=== PATIENT | male | born 1940 | race Hispanic/Latino ===

== ENCOUNTER 2017-03-10 23:57 | Inpatient (IN) | payer MEDICARE, BC ==
--- NOTE | 2017-03-11 00:33 | ED PDOC ---
Arrival/HPI - General Chief Complaint: Shortness Of Breath Time Seen by Provider: 03/11/17 00:24 Historian: Patient - History of Present Illness Narrative History of Present Illness (Text): 03/11/17 00:33 Ludwig Sim is a 76 year old male, with a history of CAD with stents, presents to the emergency department via ambulance status post cardiac arrest. According to family, patient was short of breath the entire day because his home O2 was not working. Family initially called the ambulance because the patient has severe difficulty breathing, but patient became asystolic/PEA on the ambulance en route to emergency department. ACLS protocol initiated. Patient was pulseless upon arrival. ACLS protocol continued. 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 Family/Social History - Physician Review Nursing Documentation Reviewed: Yes Family/Social History: No Known Family HX Smoking Status: Former Smoker Hx Alcohol Use: No Hx Substance Use: No Allergies/Home Meds Allergies/Adverse Reactions: Allergies No Known Allergies Allergy (Verified 03/11/17 00:11) Home Medications: Home Meds Medication Instructions Recorded Confirmed Aspirin [Adult Low Dose Aspirin EC] 81 mg PO DAILY 03/11/17 03/11/17 Atorvastatin [Lipitor] 40 mg PO DAILY 03/11/17 03/11/17 Clopidogrel [Plavix] 75 mg PO DAILY 03/11/17 03/11/17 Furosemide [Lasix] 40 mg PO DAILY 03/11/17 03/11/17 Hydralorine 50 mg PO BID 03/11/17 03/11/17 Metoprolol Tartrate [Lopressor] 50 mg PO BID 03/11/17 03/11/17 Potassium Chloride [Klor-Con] 20 meq PO DAILY 03/11/17 03/11/17 Valsartan 320 mg PO DAILY 03/11/17 03/11/17 amLODIPine [Norvasc] 10 mg PO DAILY 03/11/17 03/11/17 Review of Systems - Review of Systems Systems not reviewed;Unavailable: Other (cardiac arrest) Cardiovascular: BECK Physical Exam - Physical Exam Physical Exam Limitations: Clinical Condition Vital Signs Temp Pulse Resp BP Pulse Ox 03/11/17 02:24 61 101/41 L 03/11/17 02:00 64 33 H 108/58 L 93 L 03/11/17 01:04 148/71 03/11/17 00:40 67 24 148/71 96 03/11/17 00:25 66 17 126/71 94 L 03/10/17 23:59 99.5 F 109 H 22 208/126 H Temperature: Afebrile Blood Pressure: Normal Pulse: Regular Respiratory Rate: Normal Appearance: Positive for: Non-Toxic Mental Status: Positive for: other (Unresponsive s/p cardiac arrest ) - Systems Exam Head: Present: Atraumatic, Normocephalic Pupils: Present: Pinpoint Conjunctiva: No: Injected Mouth: Present: Moist Mucous Membranes Pharnyx: Present: Normal Nose (External): Present: Atraumatic Neck: Present: Trachea Midline. No: MIDLINE TENDERNESS Respiratory/Chest: Present: Rales Cardiovascular: Present: Other (asystole). No: Murmurs Abdomen: No: Tenderness, Distention, Peritoneal Signs Upper Extremity: No: Edema Lower Extremity: No: Edema Neurological: Present: Other (Intubated; unresponsive to verbal stimuli ) Skin: Present: Warm, Dry, Normal Color. No: Rashes Medical Decision Making ED Course and Treatment: 03/11/17 00:40 Impression: A 76 year old male who presents to the emergency department via ambulance s/p cardiac arrest. Plan: -- EKG -- Labs, cardiac enzymes -- Chest X-ray -- Urinalysis -- Reassess and disposition Progress Notes: 03/11/17 00:42 Pulse regained after chemical resuscitation via epi and continued CPR. 03/11/17 00:51 Patient was intubated in the emergency department. PROCEDURE: INTUBATION Performed by the emergency provider Time: 12:02 Indication: cardiac arrest Pre-oxygenation: [id number] ETT Size: 8 Gauge Confirmation: Cords directly visualized as tube passed, good bilateral breath sounds, positive CO2 detector color change, tube fogging, adequate chest rise, improving pulse oximetry reading, improved skin color, and absence of gastric sounds. ETT Secured: The cuff was inflated and the tube was secured appropriately at a distance of 24 cm at the lip. CXR Confirmation: Yes CT Head results reviewed: FINDINGS: There is mild ventriculomegaly and cortical sulci widening. There are areas of diminished density in the periventricular and subcortical white matter bilaterally, nonspecific. There is no evidence for hemorrhage, mass effect, or extra-axial fluid collections. No skull abnormalities are seen. Moderate mucoperiosteal thickening of the maxillary sinuses bilaterally. IMPRESSION: No evidence of acute intracranial hemorrhage. No midline shift or hydrocephalus. Age-appropriate atrophy. Areas of diminished density in the periventricular and subcortical white matter bilaterally, nonspecific however likely represent chronic small vessel ischemic change Case was discussed with who is aware and agrees with the plan to admit patient ICU. Accepts patient under her service. Patient was evaluated by . Accepts patient to the ICU - Critical Care Critical Care Minutes: 60 minutes (management of cardiac arrest ) - Lab Interpretations Lab Results: 03/11/17 00:10 03/11/17 00:10 Lab Results 03/11/17 01:00: pCO2 60 H, pO2 140.0 H, HCO3 21.9, ABG pH 7.17 L*, ABG Total CO2 23.7, ABG O2 Saturation 99.7 H, ABG O2 Content 11.7 L, ABG Base Excess -6.6 L, ABG Hemoglobin 8.4 L, ABG Carboxyhemoglobin 2.8 H, POC ABG HHb (Measured) 0.3 , ABG Methemoglobin 0.8, ABG O2 Capacity 11.7 L, Hgb O2 Saturation 96.2, FiO2 100.0 03/11/17 00:50: Urine Color Yellow, Urine Appearance Clear, Urine pH 7.0, Ur Specific [place] 1.020, Urine Protein 100 H, Urine Glucose (UA) Negative, Urine Ketones Negative, Urine Blood Negative, Urine Nitrate Negative, Urine Bilirubin Negative, Urine Urobilinogen 1.0 H, Ur Leukocyte Esterase Negative, Urine RBC 0 - 2, Urine WBC 0 - 2, Ur Epithelial Cells 0 - 2, Urine Bacteria Few 03/11/17 00:30: pO2 45, VBG pH 6.98 L*, VBG pCO2 140.0 H*, VBG HCO3 33.0 H, VBG Total CO2 37.3 H, VBG O2 Sat (Calc) 61.2, VBG Base Excess -1.8 L, VBG Potassium 4.4, Glucose 327 H, Lactate 6.6 H*, FiO2 21.0, Sodium 139.0, Chloride 101.0, Venous Blood Potassium 4.4 03/11/17 00:10: Sodium 139, Potassium 4.3, Chloride 96 L, Carbon Dioxide 32, Anion Gap 15, BUN 20, Creatinine 1.1, Est GFR ( Amer) > 60, Est GFR (Non- Af Amer) > 60, Random Glucose 293 H, Calcium 8.5, Magnesium 2.5 H, Total Bilirubin 0.8, AST 43, ALT 37, Alkaline Phosphatase 100, Lactate Dehydrogenase 651, Total Creatine Kinase 105, Troponin I 0.03, NT-Pro-B Natriuret Pep 2180 H, Total Protein 7.3, Albumin 3.7, Globulin 3.6, Albumin/Globulin Ratio 1.0 L 03/11/17 00:10: PT 12.6 H, INR 1.17 H, APTT 33.7 H 03/11/17 00:10: WBC 13.6 H, RBC 4.19, Hgb 11.4 L, Hct 38.2 L, MCV 91.2, MCH 27.2 , MCHC 29.8 L, RDW 16.2 H, Plt Count 275, MPV 10.0, Neutrophils % (Manual) 45 L , Band Neutrophils % 4 H, Lymphocytes % (Manual) 40 H, Monocytes % (Manual) 5, Eosinophils % (Manual) 2, Metamyelocytes % 2, Myelocytes % 2, Platelet Evaluation Normal, Anisocytosis (manual) 1+ I have reviewed the lab results: Yes - RAD Interpretation Radiology Orders: 03/11/17 00:25 CHEST PORTABLE [RAD] Stat 03/11/17 00:46 HEAD W/O CONTRAST [CT] Stat - EKG Interpretation Interpreted by ED Physician: Yes Type: 12 lead EKG - Medication Orders Current Medication Orders: Dobutamine HCl/Dextrose (Dobutamine/Dextrose 5% 500mg/250ml) 500 mg in 250 mls @ 7.484 mls/hr IV .Q24H PRN; Protocol; 2.5 MCG/KG/MIN PRN Reason: TITRATE PER PROTOCOL Last Admin: 03/11/17 02:24 Dose: 7.484 mls/hr Morphine Sulfate (Morphine) 3 mg IVP Q2H PRN PRN Reason: Agitation Scopolamine (Transderm-Scop) 1 patch TD Q3D NAT Last Admin: 03/11/17 05:05 Dose: 1 patch Discontinued Medications Furosemide (Lasix) 20 mg IVP ONCE ONE Stop: 03/11/17 00:55 Last Admin: 03/11/17 01:04 Dose: 20 mg Vancomycin HCl (Vancomycin 1gm) 1 gm in 250 mls @ 167 mls/hr IVPB STAT STA PRN Reason: Protocol Stop: 03/11/17 02:33 Last Admin: 03/11/17 03:11 Dose: Piperacillin Sod/Tazobactam Sod (Zosyn 3.375 In Ns 100ml) 100 mls @ 200 mls/hr IVPB STAT STA PRN Reason: Protocol Stop: 03/11/17 01:34 Last Admin: 03/11/17 02:06 Dose: 200 mls/hr Levetiracetam 1,000 mg/ Sodium (Chloride) 110 mls @ 440 mls/hr IV ONCE ONE Stop: 03/11/17 02:34 Last Admin: 03/11/17 02:46 Dose: 440 mls/hr Morphine Sulfate (Morphine) 2 mg IVP STAT STA Stop: 03/11/17 03:35 Last Admin: 03/11/17 05:08 Dose: 2 mg Sodium Bicarbonate (Sodium Bicarbonate (8.4%) 50 Meq Syringe) 50 meq IVP ONCE ONE Stop: 03/11/17 02:21 Last Admin: 03/11/17 02:30 Dose: 50 meq - Fabibe Statement The provider has reviewed the documentation as recorded by the Reese Albarran Provider Attestation: All medical record entries made by the Reese were at my direction and personally dictated by me. I have reviewed the chart and agree that the record accurately reflects my personal performance of the history, physical exam, medical decision making, and the department course for this patient. I have also personally directed, reviewed, and agree with the discharge instructions and disposition. Disposition/Present on Arrival - Present on Arrival Any Indicators Present on Arrival: No History of DVT/PE: No History of Uncontrolled Diabetes: No Urinary Catheter: No History of Decub. Ulcer: No History Surgical Site Infection Following: None - Disposition Have Diagnosis and Disposition been Completed?: Yes Diagnosis: Cardiac arrest Disposition: HOSPITALIZED Disposition Time: 03:00 Condition: CRITICAL
[2017-03-11 00:55] LABS: HEMATOCRIT 38.2 % (42.0-52.0); MEAN CELL VOLUME 91.2 fL (80.0-105.0); MEAN CORPUSCULAR HEMOGLOBIN 27.2 pg (25.0-35.0); MEAN CORPUSCULAR HGB CONC 29.8 g/dl (31.0-37.0); PLATELET COUNT 275 10^3/uL (120.0-450.0); RED CELL DISTRIBUTION WIDTH 16.2 % (11.5-14.5); WHITE BLOOD COUNT 13.6 10^3/ul (4.5-11.0)
[2017-03-11 00:57] LABS: ADD MANUAL DIFF? YES
[2017-03-11 01:01] LABS: INR 1.17 (0.93-1.08); PARTIAL THROMBOPLASTIN TIME 33.7 Seconds (23.7-30.8)
[2017-03-11 01:03] LABS: ALKALINE PHOSPHATASE 100 U/L (38-133); ALT/SGPT 37 U/L (7-56); AST/SGOT 43 U/L (15-59); BILIRUBIN,TOTAL 0.8 mg/dL (0.2-1.3); BLOOD UREA NITROGEN 20 mg/dL (7-21); CALCIUM 8.5 mg/dL (8.4-10.5); CARBON DIOXIDE 32 mmol/L (21-33); CHLORIDE 96 mmol/L (98-107); GFR AFRICAN-AMERICAN > 60; GLUCOSE,RANDOM 293 mg/dL (70-110); MAGNESIUM 2.5 mg/dL (1.7-2.2); POTASSIUM 4.3 mmol/L (3.6-5.0); SODIUM 139 mmol/L (132-148); TOTAL PROTEIN 7.3 g/dL (5.8-8.3)
[2017-03-11] MEDS ORDERED: Vancomycin 1gm in NS 250ml 1 GM/250 ML BAG IVPB STA (01:04)
[2017-03-11] MEDS ORDERED: Piperacillin/Tazobact 3.375 gm 100 ML IVPB STA (01:05)
[2017-03-11 01:08] LABS: URINE BILIRUBIN NEGATIVE (NEGATIVE); URINE BLOOD NEGATIVE (NEGATIVE); URINE GLUCOSE (UA) NEGATIVE (NEGATIVE); URINE KETONE NEGATIVE (NEGATIVE); URINE LEUKOCYTE ESTERASE NEGATIVE Leu/uL (NEGATIVE); URINE PROTEIN 100 mg/dL (<30 mg/dL)
[2017-03-11 01:09] LABS: VENOUS BLOOD GAS BASE EXCESS -1.8 mmol/L (0.0-2.0)
[2017-03-11 01:13] LABS: VENOUS BLOOD PH 6.98 (7.32-7.43)
[2017-03-11 01:15] LABS: TROPONIN I 0.03 ng/mL
[2017-03-11 01:16] LABS: ARTERIAL BLOOD GAS HCO3 21.9 mmol/L (21-28); ARTERIAL BLOOD GAS O2 CAPACITY 11.7 mL/dl (16-24); ARTERIAL BLOOD GAS O2 CONTENT 11.7 ML/dl (15-23); ARTERIAL BLOOD HGB O2 SAT 96.2 % (95.0-98.0); CARBOXYHEMOGLOBIN 2.8 % (0.5-1.5); HHB 0.3 % (0-5); METHEMOGLOBIN 0.8 % (0.0-3.0)
[2017-03-11 01:18] LABS: ARTERIAL BLOOD GAS PH 7.17 (7.35-7.45)
[2017-03-11 01:22] LABS: URINE APPEARANCE CLEAR (CLEAR); URINE COLOR YELLOW (YELLOW)
[2017-03-11 01:24] LABS: URINE BACTERIA FEW (NEG); URINE EPITHELIAL CELLS 0 - 2 /hpf (0-5); URINE RBC 0 - 2 /hpf (0-2); URINE WBC 0 - 2 /hpf (0-6)
[2017-03-11 02:03] LABS: BAND 4 % (0-2); NEUTROPHIL 45 % (50.0-70.0)
[2017-03-11 02:04] LABS: EOSINOPHIL 2 % (0.0-3.0); METAMYELOCYTE 2 %; MYELOCYTE 2 %
[2017-03-11 02:05] LABS: ANISOCYTOSIS 1+
[2017-03-11 02:06] LABS: PLATELET ESTIMATE NORMAL (NORMAL)
[2017-03-11] MEDS ORDERED: DOBUTamine 500mg/250ml D5W 500 MG/250 ML BAG IV PRN (02:11)
[2017-03-11] MEDS ORDERED: levETIRAcetam 1,000 MG in Sodium Chloride 0.9% 100 ML IV ONE (02:20)
[2017-03-11] MEDS ORDERED: Sodium Bicarbonate (8.4%) 50 Meq Syringe IVP ONE (02:20)
--- NOTE | 2017-03-11 03:17 | CP.PCM.CON ---
History of Present Illness - History of Present Illness History of Present Illness: Reason for ICU consult: Cardiac arrest HPI: 76 y/o male with a PMHx CAD, Htn, CHF (unknown EF) was brought to the ED via EMS due to him having complaints of not breathing well. The patient's son states that he has had a cardiac catheterization last month where he had a stent placed and since then he has not been his usual self. He has had frequent admissions to [facility] for heart failure requiring diuresis. His most recent admission was last week where he was in the ICU for 2-3 days, downgraded to the medical floor and discharged home 2 days ago. The family states that he began complaining of chest pain and discomfort after returning from the hospital however he did not seek treatment or return to the hospital hoping it would pass. Today the patient began having difficulty breathing to the point where EMS was called. En route to the ED, patient underwent a cardiac arrest which continued as he was brought in to the emergency room. He was given at least 4 epinephrine and remained in Asystole for over 20 minutes until ROSC was achieved. The patient is currently intubated, not on any sedation and not able to provide any history or participate in the exam. I discussed the patient's current condition and poor prognosis with the family and they state they want to decide on how to proceed with patient's care in terms of aggressive care vs DNR at this time. PMHx: CAD s/p recent stent placed last month Htn CHF (unknown EF, patient had treatment and care at [facility]) Allergies: NKDA Fam Hx: CAD in multiple family members Soc Hx: 1ppd x 20yrs (quit 30yrs ago); no etoh use; lived at home with his family and was able to perform all ADL's and IADL's himself up until about 1 month ago where he became increasingly debilitated to the point where he was having difficulty walking more than a few steps without becoming short of breath Meds: Metoprolol 25mg po bid Potassium supplementation 20mEq daily Valsartan 320mg po daily Lasix 40mg po daily Norvasc 10mg po daily Hydralazine 50mg po bid Atorvastatin 40mg po hs Aspirin 81mg po daily Protonix 40mg po daily Review of Systems - Review of Systems Systems not reviewed;Unavailable: Acuity of Condition, Intubated Past Patient History - Past Social History Smoking Status: Former Smoker - HEENT Hx HEENT Problems: No - RENAL Hx Chronic Kidney Disease: No - ENDOCRINE/METABOLIC Hx Endocrine Disorders: No - HEMATOLOGICAL/ONCOLOGICAL Hx Blood Disorders: No - INTEGUMENTARY Hx Dermatological Problems: No - MUSCULOSKELETAL/RHEUMATOLOGICAL Hx Musculoskeletal Disorders: No - GASTROINTESTINAL Hx Gastrointestinal Disorders: No - GENITOURINARY/GYNECOLOGICAL Hx Genitourinary Disorders: No - PSYCHIATRIC Hx Psychophysiologic Disorder: No Hx Substance Use: No - 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 Allergies/Adverse Reactions: Allergies Allergy/AdvReac Type Severity Reaction Status Date / Time No Known Allergies Allergy Verified 03/11/17 00:11 - Medications Medications: Current Medications Vancomycin HCl (Vancomycin 1gm) 1 gm in 250 mls @ 167 mls/hr IVPB STAT STA PRN Reason: Protocol Stop: 03/11/17 02:33 Dobutamine HCl/Dextrose (Dobutamine/Dextrose 5% 500mg/250ml) 500 mg in 250 mls @ 7.484 mls/hr IV .Q24H PRN; Protocol; 2.5 MCG/KG/MIN PRN Reason: TITRATE PER PROTOCOL Last Admin: 03/11/17 02:24 Dose: 7.484 mls/hr Levetiracetam 1,000 mg/ Sodium (Chloride) 110 mls @ 440 mls/hr IV ONCE ONE Stop: 03/11/17 02:34 Physical Exam - Constitutional Additional comments: intubated; not on any sedation, unresponsive to verbal/physical/painful stimulus at this time. Appears to be posturing and showing myoclonic jerks every few minutes as well - Head Exam Head Exam: ATRAUMATIC, NORMOCEPHALIC - Eye Exam Pupil Exam: PERRL - ENT Exam ENT Exam: Mucous Membranes Moist - Neck Exam Additional comments: short thick neck - Respiratory Exam Respiratory Exam: Decreased Breath Sounds (decreased bilateral breath sounds), Rales, Rhonchi. absent: Wheezes - Cardiovascular Exam Cardiovascular Exam: REGULAR RHYTHM, +S1, +S2 - GI/Abdominal Exam GI & Abdominal Exam: Soft. absent: Guarding, Rebound, Tenderness - Rectal Exam Rectal Exam: Deferred - Extremities Exam Extremities exam: Negative for: calf tenderness Additional comments: 2+ LE edema bilaterally - Neurological Exam Neurological exam: Altered (unresponsive to multiple verbal/physical/painful stimuli) - Skin Skin Exam: Dry, Intact, Normal Color, Warm Results - Vital Signs Recent Vital Signs: Last Vital Signs Temp 99.5 F 03/10/17 23:59 Pulse 61 03/11/17 02:24 Resp 24 03/11/17 00:40 BP 101/41 L 03/11/17 02:24 Pulse Ox 96 03/11/17 00:40 - Labs Result Diagrams: 03/11/17 00:10 03/11/17 00:10 Labs: Laboratory Results - last 24 hr 03/11/17 03/11/17 03/11/17 00:10 00:10 00:10 WBC 13.6 H RBC 4.19 Hgb 11.4 L Hct 38.2 L MCV 91.2 MCH 27.2 MCHC 29.8 L RDW 16.2 H Plt Count 275 MPV 10.0 Neutrophils % (Manual) 45 L Band Neutrophils % 4 H Lymphocytes % (Manual) 40 H Monocytes % (Manual) 5 Eosinophils % (Manual) 2 Metamyelocytes % 2 Myelocytes % 2 Platelet Evaluation Normal Anisocytosis (manual) 1+ PT 12.6 H INR 1.17 H APTT 33.7 H pCO2 pO2 HCO3 ABG pH ABG Total CO2 ABG O2 Saturation ABG O2 Content ABG Base Excess ABG Hemoglobin ABG Carboxyhemoglobin POC ABG HHb (Measured) ABG Methemoglobin ABG O2 Capacity VBG pH VBG pCO2 VBG HCO3 VBG Total CO2 VBG O2 Sat (Calc) VBG Base Excess VBG Potassium Hgb O2 Saturation Glucose Lactate FiO2 Sodium 139 Potassium 4.3 Chloride 96 L Carbon Dioxide 32 Anion Gap 15 BUN 20 Creatinine 1.1 Est GFR ( Amer) > 60 Est GFR (Non-Af Amer) > 60 Random Glucose 293 H Calcium 8.5 Magnesium 2.5 H Total Bilirubin 0.8 AST 43 ALT 37 Alkaline Phosphatase 100 Lactate Dehydrogenase 651 Total Creatine Kinase 105 Troponin I 0.03 NT-Pro-B Natriuret Pep 2180 H Total Protein 7.3 Albumin 3.7 Globulin 3.6 Albumin/Globulin Ratio 1.0 L Venous Blood Potassium Urine Color Urine Appearance Urine pH Ur Specific [place] Urine Protein Urine Glucose (UA) Urine Ketones Urine Blood Urine Nitrate Urine Bilirubin Urine Urobilinogen Ur Leukocyte Esterase Urine RBC Urine WBC Ur Epithelial Cells Urine Bacteria 03/11/17 03/11/17 03/11/17 00:30 00:50 01:00 WBC RBC Hgb Hct MCV MCH MCHC RDW Plt Count MPV Neutrophils % (Manual) Band Neutrophils % Lymphocytes % (Manual) Monocytes % (Manual) Eosinophils % (Manual) Metamyelocytes % Myelocytes % Platelet Evaluation Anisocytosis (manual) PT INR APTT pCO2 60 H pO2 45 140.0 H HCO3 21.9 ABG pH 7.17 L* ABG Total CO2 23.7 ABG O2 Saturation 99.7 H ABG O2 Content 11.7 L ABG Base Excess -6.6 L ABG Hemoglobin 8.4 L ABG Carboxyhemoglobin 2.8 H POC ABG HHb (Measured) 0.3 ABG Methemoglobin 0.8 ABG O2 Capacity 11.7 L VBG pH 6.98 L* VBG pCO2 140.0 H* VBG HCO3 33.0 H VBG Total CO2 37.3 H VBG O2 Sat (Calc) 61.2 VBG Base Excess -1.8 L VBG Potassium 4.4 Hgb O2 Saturation 96.2 Glucose 327 H Lactate 6.6 H* FiO2 21.0 100.0 Sodium 139.0 Potassium Chloride 101.0 Carbon Dioxide Anion Gap BUN Creatinine Est GFR ( Amer) Est GFR (Non-Af Amer) Random Glucose Calcium Magnesium Total Bilirubin AST ALT Alkaline Phosphatase Lactate Dehydrogenase Total Creatine Kinase Troponin I NT-Pro-B Natriuret Pep Total Protein Albumin Globulin Albumin/Globulin Ratio Venous Blood Potassium 4.4 Urine Color Yellow Urine Appearance Clear Urine pH 7.0 Ur Specific [place] 1.020 Urine Protein 100 H Urine Glucose (UA) Negative Urine Ketones Negative Urine Blood Negative Urine Nitrate Negative Urine Bilirubin Negative Urine Urobilinogen 1.0 H Ur Leukocyte Esterase Negative Urine RBC 0 - 2 Urine WBC 0 - 2 Ur Epithelial Cells 0 - 2 Urine Bacteria Few - EKG Data EKG Interpreted by: Myself EKG shows normal: Sinus rhythm (SR + 1st degree AV block; no ST elevations noted ; ?ST depressions in the precordial leads) - Imaging and Cardiology Chest x-ray Status: Image reviewed by me (bilateral pulmonary vascular congestion c/w pulmonary edema; no clearly defined consolidation can be appreciated; diaphragmatic tenting noted) CT scan - head Status: Image reviewed by me, Report reviewed by me (no intracranial hemorrhage , shift or hydrocephalus; chronci small vessel ischemic changes) Assessment & Plan - Assessment and Plan (Free Text) Assessment: 76 y/o male with a PMHx CAD s/p recent PCI with stent placement last month, Htn , CHF, COPD was brought to the ED as a cardiac arrest. Patient will be admitted to the ICU for further care and management. Plan: update/late entry: 4:50am After a lengthy discussion with multiple family members including the patient's , 2 sons, daughter and his brother, the family decided that proceeding with aggressive care and management would have been against the patient's wishes. They are all opposed to therapeutic hypothermia which was given as a possible option if proceeding with care. They stated that he was not happy with his quality of life and has mentioned in the past not ever wanting to be on a ventilator. The family has decided collectively to proceed with a terminal extubation with the goals of care to be comfort and to prevent any suffering prior to the patient's expiration. This was discussed in depth with the nursing staff as well as Dr. Fischer in the ED. He will be given a dose of morphine 2mg IVP x 1, followed by Morphine IVP as needed Scopalamine TD terminally extubated
[2017-03-11] MEDS ORDERED: Morphine 2 mg/ml ISec IVP STA (03:34)
[2017-03-11] MEDS ORDERED: Morphine 4 mg/ml ISec IVP PRN (03:34)
[2017-03-11] MEDS ORDERED: Scopolamine 1.5 mg/24 hr Patch TD SCH (03:45)
[2017-03-11 04:56] VITALS: RESP 16; TEMP 100; BMI 34.4
--- NOTE | 2017-03-11 06:01 | CP.PCM.PRO ---
Pronouncement of Note - Clinical Findings Physical Exam: No Response Verbal/Painful Stimuli, Absent Peripheral Pulses{ Carotid & Femoral}, Absent Heart & Breath Sounds, No Pupillary Light Reflex, Absence of Vital Signs - Pronouncement Time Time of Pronouncement of : 05:50 - Notifications Pronouncement Notifications: Family Notified, Atending Notified Groundskeeper Porter Notified: Yes - Autopsy Autopsy Requested: No [place]: [id number] Additional Comments: Family present at bedside; condolences offered. PMD (Dr. Smith) notified. EDRS started, to be completed by Primary Physician.
[2017-03-11 06:48] VITALS: BP 111/42; PULSE 61; O2SAT 92
--- NOTE | 2017-03-11 07:20 | CT ---
PROCEDURE: CT HEAD WITHOUT CONTRAST. HISTORY: cardiac arrest COMPARISON: None available. TECHNIQUE: Axial computed tomography images were obtained through the head/brain without intravenous contrast. Radiation dose: Total exam DLP = 722.45 mGy-cm. This CT exam was performed using one or more of the following dose reduction techniques: Automated exposure control, adjustment of the mA and/or kV according to patient size, and/or use of iterative reconstruction technique. FINDINGS: HEMORRHAGE: No intracranial hemorrhage. BRAIN: No mass effect or edema. No significant atrophy. Scattered patchy foci of periventricular and deep white matter lucency consistent with chronic microvascular ischemic change. No evidence of acute infarct. VENTRICLES: Unremarkable. No hydrocephalus. CALVARIUM: Unremarkable. PARANASAL SINUSES: Chronic ethmoid and bilateral maxillary sinusitis. MASTOID AIR CELLS: Unremarkable as visualized. No inflammatory changes. OTHER FINDINGS: None. IMPRESSION: No intracranial mass, hemorrhage or evidence of acute infarct. Chronic microvascular ischemic change. Chronic paranasal sinusitis. Preliminary interpretation of this examination was reported by [employer] at 1:44 a.m. on 03/11/2017. There is concurrence of this report with the preliminary interpretation.
--- NOTE | 2017-03-11 07:51 | RAD ---
HISTORY: sob COMPARISON: Not available FINDINGS: LUNGS: Bilateral ill-defined upper lobe opacity, left greater than right. Nonspecific. Possible pneumonia versus pulmonary edema. PLEURA: No significant pleural effusion identified, no pneumothorax apparent. CARDIOVASCULAR: Normal heart size. Mild congestive change. ET tube approximately 4.6 cm above the tracheal kiah. OSSEOUS STRUCTURES: No significant abnormalities. VISUALIZED UPPER ABDOMEN: Normal. OTHER FINDINGS: None. IMPRESSION: Bilateral upper lobe ill-defined opacity, left greater than right. Congestive change. No pleural effusion. ET tube appropriately positioned.
--- NOTE | 2017-03-11 13:33 | HP ---
HISTORY OF PRESENT ILLNESS: This patient was endorsed to me around 1:00 in the middle of the night. The patient came with cardiac arrest. His primary care physician is outside to this facility and so I was called to admit the patient; however, the patient was taken care by store product demonstrator and after he s poke to the family, they made him DNR. He was extubated and he before even I saw the pat niurka. He was pronounced around 5:50 a.m. on 03/11/2017. Cheo Watts MD cc: [phone] TT: 03/11/2017 13:33:03 tn
--- NOTE | 2017-03-12 01:42 | CARD ---
APPROVED REPORT EKG Measurement Heart [id number] <Conclusion> Sinus rhythm with 1st degree AV block Right bundle branch block Abnormal ECG
== END 2017-03-11 05:50 | DRG 293 ==
LOC: ED 23:57 → ERH 03-11 02:12 → MERGE 03-11 02:12 → CCU 03-11 04:04
PROVIDERS: ADMIT Internal Medicine; ATTEND Internal Medicine
PROC: 5A1935Z Respiratory Ventilation, Less than 24 Consecutive Hours (ICD-10-PCS; principal; 2017-03-11)
PROC: 5A12012 Performance of Cardiac Output, Single, Manual (ICD-10-PCS; 2017-03-11)
PROC: 0BH17EZ Insertion of Endotracheal Airway into Trachea, Via Natural or Artificial Opening (ICD-10-PCS; 2017-03-11)
DX: I11.0 Hypertensive heart disease with heart failure (principal); I50.9 Heart failure, unspecified; J44.9 Chronic obstructive pulmonary disease, unspecified; I25.10 Atherosclerotic heart disease of native coronary artery without angina pectoris; I44.0 Atrioventricular block, first degree; Z66 Do not resuscitate; Z95.5 Presence of coronary angioplasty implant and graft; Z79.82 Long term (current) use of aspirin; Z87.891 Personal history of nicotine dependence